=== PATIENT | female | born 1955 | race Caucasian/White ===

== ENCOUNTER 2021-03-16 11:47 | Emergency (ER) | payer OTHER, SELFPAY ==
[2021-03-16 11:56] VITALS: BP 121/65; PULSE 63; RESP 16; TEMP 36.9; O2SAT 97
--- NOTE | 2021-03-16 12:18 | ED.EAR ---
HPI - Ear Problem General Chief complaint: Ear Stated complaint: lt ear pain Time Seen by Provider: 03/16/21 12:20 Source: patient Mode of arrival: ambulatory Limitations: no limitations History of Present Illness HPI Narrative: Kari Whitlock is a 65 yo female with no PMH of left ear pain that has been going on for couple of weeks. States the increasing pain is bothering her and she is feels like her here hearing is muffled Related Data Home Medications Medication Instructions Recorded Confirmed cholecalciferol (vitamin D3) 50 mcg PO DAILY 03/16/21 03/16/21 [Vitamin D3] glucosamine sulfate [Glucosamine] 750 mg PO DAILY 03/16/21 03/16/21 Allergies Allergy/AdvReac Type Severity Reaction Status Date / Time diphenhydramine Allergy Hives Verified 03/16/21 11:53 [From Rosalina] Review of Systems Review of Systems: Narrative: CONSTITUTIONAL: Denies fever, chills, sweats. EYES: Denies visual changes, redness, discharge. ENT: Denies rhinorrhea, congestion, sore throat, left otalgia. CARDIOVASCULAR: Denies chest pain, palpitations, edema. RESPIRATORY: Denies dyspnea, wheezing, cough GASTROINTESTINAL: Denies abdominal pain, nausea, vomiting, diarrhea. GENITOURINARY: Denies dysuria, hematuria, abnormal discharge SKIN: Denies rash or itching. NEUROLOGIC: Denies numbness, or focal weakness. PSYCHIATRIC: Denies anxiety or depression. [facility] Past Medical History Medical History No acute medical problems Family History Family History Other Cancer Heart disease Social History Social History (Updated 03/16/21 @ 12:31 by Cristiana Crawford CNP) Smoking status: Never smoker Alcohol intake: current Comments At time of signature, I agree with nursing past medical, surgical, social and family history. There is no relevant family history pertinent to the presenting complaint. Exam Narrative: Exam Narrative: GENERAL: This is a well-nourished, well-developed patient, in mild distress. HEAD: normocephalic, atraumatic. EYES: . Sclera clear/white. Vision is grossly intact. EARS: External ears normal, auditory canals clear on R erythema and swell in L without drainage, no cerumen,TMs normal without perforation. Hearing grossly intact. NOSE: External nose normal without nasal discharge, nares without redness, no rhinorrhea. THROAT: Mucous membranes moist, NECK: Neck supple, CARDIOVASCULAR: Regular rate and rhythm without murmurs, gallops, or rubs. RESPIRATORY: Clear to auscultation. Breath sounds equal bilaterally. No wheezes, rales, or rhonchi. GASTROINTESTINAL: Abdomen soft, SKIN: warm, intact with no suspicious lesions or rash, good texture and turgor. NEURO: awake, alert, and oriented to person, place and time. There were no obvious focal neurologic abnormalities. Steady gait EXTREMITIES: Normal range of motion. BACK: Nontender without deformity Course Course Emergency Course: Patient comes here with left ear pain and feeling hearing is somewhat muffled Started on Ciprodex. Follow-up with [facility] after a week Vital Signs Vital signs: Vital Signs Temperature 98.4 F 03/16/21 11:56 Pulse Rate 63 03/16/21 11:56 Respiratory Rate 16 03/16/21 11:56 Blood Pressure 121/65 03/16/21 11:56 Pulse Oximetry 97 03/16/21 11:56 Temperature 98.4 F 03/16/21 11:56 Pulse Rate 63 03/16/21 11:56 Respiratory Rate 16 03/16/21 11:56 Blood Pressure 121/65 03/16/21 11:56 Pulse Oximetry 97 03/16/21 11:56 Medical Decision Making Differential Diagnosis Differential Diagnosis: Left ear infection versus otitis external versus pharyngitis Vital Signs Vital Signs: Vital Signs Temperature 98.4 F 03/16/21 11:56 Pulse Rate 63 03/16/21 11:56 Respiratory Rate 16 03/16/21 11:56 Blood Pressure 121/65 03/16/21 11:56 Pulse Oximetry 97 03/16/21 11:56 Temperature 98.4
--- NOTE | 2021-03-19 16:04 | ED.EAR ---
HPI - Ear Problem General Chief complaint: Ear Stated complaint: lt ear pain Time Seen by Provider: 03/16/21 12:20 Source: patient Mode of arrival: ambulatory Limitations: no limitations History of Present Illness MD Complaint: ear pain Related Data Home Medications Medication Instructions Recorded Confirmed cholecalciferol (vitamin D3) 50 mcg PO DAILY 03/16/21 03/16/21 [Vitamin D3] glucosamine sulfate [Glucosamine] 750 mg PO DAILY 03/16/21 03/16/21 estradiol 10 mcg VAGINAL DIRECTED 03/19/21 03/19/21 Allergies Allergy/AdvReac Type Severity Reaction Status Date / Time diphenhydramine Allergy Hives Verified 03/19/21 16:06 [From Benelsaryl] Review of Systems Review of Systems: Narrative: CONSTITUTIONAL: Denies malaise, chills, sweats, or fever. EYES: Denies visual changes, redness, or discharge. ENT: Reports rhinorrhea, congestion, sinus pain, otalgia and sore throat. CARDIOVASCULAR: Denies chest pain, palpitations, or edema. RESPIRATORY: Reports cough. Denies dyspnea. GASTROINTESTINAL: Denies abdominal pain, nausea, vomiting, diarrhea SKIN: Denies rash or itching. MUSCULOSKELETAL: Denies myalgia. NEUROLOGIC: Denies headache. All systems reviewed & are unremarkable except as noted in HPI and below PMFSH Past Medical History Medical History No acute medical problems Family History Family History Other Cancer Heart disease Social History Social History (Updated 03/16/21 @ 12:31 by Cristiana Crawford CNP) Smoking status: Never smoker Alcohol intake: current Comments At time of signature, agree with nursing past medical, surgical, social and family history. There is no relevant family history pertinent to the presenting complaint Exam Narrative: Exam Narrative: GENERAL: Well-appearing, well-nourished, and in no acute distress. HEAD: Normocephalic EYES: PERRLA, conjunctivae clear ENT: Nares clear, turbinates edematous and erythematous, clear discharge. Mucous membranes moist. TM pearly sam with dull light reflex bilaterally; no tragal tenderness. Oropharynx erythematous without lesions. Tonsils enlarged and without exudate, no drooling, no hoarseness, no trismus, uvula midline. NECK: Supple. No lymphadenopathy CHEST: Clear to auscultation, breath sounds equal. No wheezing, rhonchi, rales, or stridor. No respiratory distress, speaks in full sentences. HEART: Regular rate and rhythm. No murmur heard. SKIN: Warm, dry, no rash. NEURO: Alert and oriented x3. PSYCH: Normal mood and affect Course Course Emergency Course: Patient is aware of diagnosis, understands and agrees to treatment plan. Anticipatory guidance given. Patient agrees to follow-up as directed and is aware of reasons to seek care at the emergency department. Portions of this record may have been created with voice recognition software Vital Signs Vital signs: Vital Signs Temperature 98.4 F 03/16/21 11:56 Pulse Rate 63 03/16/21 11:56 Respiratory Rate 16 03/16/21 11:56 Blood Pressure 121/65 03/16/21 11:56 Pulse Oximetry 97 03/16/21 11:56 Temperature 98.4 F 03/16/21 11:56 Pulse Rate 63 03/16/21 11:56 Respiratory Rate 16 03/16/21 11:56 Blood Pressure 121/65 03/16/21 11:56 Pulse Oximetry 97 03/16/21 11:56 Reviewed. Medical Decision Making MDM Narrative Medical decision making narrative: Differential diagnosis considered: Max virus, strep pharyngitis, allergic rhinitis, upper respiratory tract infection, sinusitis, rhinosinusitis, nasopharyngitis. viral pharyngitis, otitis media, otitis externa, pneumonia, bronchitis, viral cough syndrome, viral syndrome, and influenza. Exam findings show no acute concerns or changes; patient is non-toxic appearing and is in no distress. Patient is appropriate for outpatient treatment and follow-up. Vital Signs Vital Signs: Vital Signs Temperat
== END 2021-03-16 12:42 | disposition home or self-care (01) ==
PROVIDERS: Emergency Provider Nurse Practitioner
DX: H66.002 Acute suppurative otitis media without spontaneous rupture of ear drum, left ear (principal)
CPT/HCPCS: 99203; G0463

== ENCOUNTER 2021-03-19 16:02 | Emergency (ER) | payer OTHER, SELFPAY ==
[2021-03-19 16:08] VITALS: BP 137/77; PULSE 74; RESP 18; TEMP 36.9; O2SAT 98
--- NOTE | 2021-03-19 16:20 | ED.EAR ---
HPI - Ear Problem General Chief complaint: Ear Stated complaint: ear pain Time Seen by Provider: 03/19/21 16:13 Source: patient and RN notes reviewed Mode of arrival: ambulatory Limitations: no limitations History of Present Illness HPI Narrative: 65-year-old female presents with concern for continued left ear pain. Reports she was seen 3 days ago for the same symptoms and was given antibiotic eardrops. Reports symptoms have worsened since that time. She denies drainage from the ear. She denies rhinorrhea, nasal congestion, fever, sore throat, cough. Reports muffled hearing MD Complaint: ear pain Related Data Home Medications Medication Instructions Recorded Confirmed cholecalciferol (vitamin D3) 50 mcg PO DAILY 03/16/21 03/16/21 [Vitamin D3] glucosamine sulfate [Glucosamine] 750 mg PO DAILY 03/16/21 03/16/21 estradiol 10 mcg VAGINAL DIRECTED 03/19/21 03/19/21 Allergies Allergy/AdvReac Type Severity Reaction Status Date / Time diphenhydramine Allergy Hives Verified 03/19/21 16:06 [From Rosalina] Review of Systems Review of Systems: Narrative: CONSTITUTIONAL: Denies malaise, chills, sweats, or fever. EYES: Denies visual changes, redness, or discharge. ENT: Denies rhinorrhea, congestion, sinus pain or sore throat. Reports left ear pain RESPIRATORY: Denies cough or dyspnea. SKIN: Denies rash or itching. MUSCULOSKELETAL: Denies myalgia. NEUROLOGIC: Denies headache. All systems reviewed & are unremarkable except as noted in HPI and below PMFSH Past Medical History Medical History No acute medical problems Family History Family History Other Cancer Heart disease Social History Social History (Updated 03/16/21 @ 12:31 by Cristiana Crawford CNP) Smoking status: Never smoker Alcohol intake: current Gender identity (if verbalized by the patient): Female Comments At time of signature, agree with nursing past medical, surgical, social and family history. There is no relevant family history pertinent to the presenting complaint Exam Narrative: Exam Narrative: GENERAL: Well-appearing, well-nourished, and in no acute distress. HEAD: Normocephalic, atraumatic. EYES: PERRLA, conjunctivae clear ENT: Nares clear. Mucous membranes moist. Right TM pearly sam with sharp light reflex, left TM not visible; left auditory canal erythematous, edematous with purulent drainage, not able to visual TM, left tragal tenderness. Oropharynx without erythema or lesions. Tonsils not enlarged and without exudate. NECK: Supple. CHEST: No respiratory distress. Speaks in full sentences. HEART: Regular rate and rhythm. SKIN: Warm, dry, no rash. NEURO: Alert and oriented x3. PSYCH: Normal mood and affect Course Course Emergency Course: Patient is aware of diagnosis, understands and agrees to treatment plan. Anticipatory guidance given. Patient agrees to follow-up as directed and is aware of reasons to seek care at the emergency department. Portions of this record may have been created with voice recognition software Vital Signs Vital signs: Vital Signs Temperature 98.4 F 03/19/21 16:08 Pulse Rate 74 03/19/21 16:08 Respiratory Rate 18 03/19/21 16:08 Blood Pressure 137/77 03/19/21 16:08 Pulse Oximetry 98 03/19/21 16:08 Temperature 98.4 F 03/19/21 16:08 Pulse Rate 74 03/19/21 16:08 Respiratory Rate 18 03/19/21 16:08 Blood Pressure 137/77 03/19/21 16:08 Pulse Oximetry 98 03/19/21 16:08 Reviewed. Medical Decision Making MDM Narrative Medical decision making narrative: Differential diagnosis considered: Max virus, strep pharyngitis, allergic rhinitis, upper respiratory tract infection, sinusitis, rhinosinusitis, nasopharyngitis. viral pharyngitis, otitis media, otitis externa, foreign body, eustachian tube dysfunction. Exam findings show no acute concerns or changes;
== END 2021-03-19 16:26 | disposition home or self-care (01) ==
PROVIDERS: Emergency Provider Nurse Practitioner
DX: H60.502 Unspecified acute noninfective otitis externa, left ear (principal)
CPT/HCPCS: 99213; G0463

== ENCOUNTER 2022-02-05 00:12 | Day surgery (SDC) | payer OTHER, SELFPAY ==
[2022-01-23 11:44] VITALS: BMI 31.8
--- NOTE | 2022-02-02 16:34 | PM.HPGS ---
History of Present Illness History of Present Illness Consent: Risks, benefits, and alternatives have been discussed and questions answered. Patient agrees to proceed with procedure. Chief complaint: hx of colon polyps Narrative: Kari Whitlock is a 66 year old female who was referred for colon cancer screening. she has a family history of colon cancer. Her father had colon cancer. She also has had polyps removed in the past Review of Systems Review of Systems: All systems reviewed & are unremarkable except as noted in HPI and below PMFSH Past Medical History Medical History Arthritis BMI 32.0-32.9,adult COVID-19 Encounter for screening colonoscopy Hyperlipidemia No acute medical problems Surgical History Surgical History History of appendectomy Hx of breast reduction, elective Family History Family History Father Carcinoma of colon Bladder cancer Mother No problems noted. 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 Gender identity (if verbalized by the patient): Female Spiritual care concerns: No Meds Home Medications and Allergies Home Medications Medication Instructions Recorded Confirmed Type cholecalciferol (vitamin D3) 50 mcg PO DAILY 03/16/21 01/23/22 History [Vitamin D3] glucosamine sulfate [Glucosamine] 750 mg PO DAILY 03/16/21 01/23/22 History estradiol 1 g VAGINAL 2XW 07/12/21 01/23/22 History rosuvastatin 20 mg tablet 20 mg PO DAILY #30 tablet 01/30/22 Rx Allergies Allergy/AdvReac Type Severity Reaction Status Date / Time diphenhydramine Allergy Hives Verified 02/05/22 06:23 [From Benadryl] Exam Const: General: alert Orientation/consciousness: patient oriented x3 Resp: Auscultation: clear to auscultation bilaterally Cardio: Rhythm: regular rhythm GI: GI Palp: Yes Soft to palpation and No Tenderness to palpation present (GI) Neuro: General: patient oriented x3 Assessment and Plan Assessment and plan (1) Colon cancer screening: Code(s): Z12.11 - Encounter for screening for malignant neoplasm of colon Status: Acute Assessment and Plan: Colonoscopy with possible biopsy or polypectomy or cautery or injection of substances.
[2022-02-05 06:25] VITALS: BP 117/72; PULSE 79; RESP 20; TEMP 36.8; O2SAT 98
[2022-02-05] MEDS: LACTATED RINGERS 1,000 ML 150 ML IV CONT (06:35)
--- NOTE | 2022-02-05 06:36 | P.PNAN_ITS ---
Anes - Initial Pre Proc Eval Procedure: Operation Date: 02/05/22 07:30 Proposed Procedures p Screening Colonoscopy - Ruperto Albarado MD Date/Time: 02/05/22 06:36 Surgeon: Ruperto Albarado MD Pre Op Diagnosis: hx of colon polyps Patient Data Age: 66 Gender: F Height: 1.73 m Weight: 93.9 kg Last Vital Signs Temp 36.8 C 02/05/22 06:25 Pulse 79 02/05/22 06:25 Resp 20 02/05/22 06:25 BP 117/72 02/05/22 06:25 Pulse Ox 98 02/05/22 06:25 Allergies Allergy/AdvReac Type Severity Reaction Status Date / Time diphenhydramine Allergy Hives Verified 02/05/22 06:23 [From Benadryl] Home Medications Medication Instructions Recorded Confirmed Type cholecalciferol (vitamin D3) 50 mcg PO DAILY 03/16/21 01/23/22 History [Vitamin D3] glucosamine sulfate [Glucosamine] 750 mg PO DAILY 03/16/21 01/23/22 History estradiol 1 g VAGINAL 2XW 07/12/21 01/23/22 History rosuvastatin 20 mg tablet 20 mg PO DAILY #30 tablet 01/30/22 Rx Patient hx anesthesia problems: none Family hx anesthesia problems: none Results Review: All pre-operative results and documents have been reviewed as part of the pre-operative evaluation. [facility] Past Medical History Medical History (Updated 02/05/22 @ 06:37 by Gian Holliday DO) Arthritis BMI 32.0-32.9,adult COVID-19 Encounter for screening colonoscopy Hyperlipidemia No acute medical problems Surgical History Surgical History History of appendectomy Hx of breast reduction, elective Family History Family History Father Carcinoma of colon Bladder cancer Mother No problems noted. 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 Gender identity (if verbalized by the patient): Female Spiritual care concerns: No Anes - Eval Final PreProcedure Day of Procedure 02/05/22 06:36 Patient weight: obese Heart: regular rate and rhythm Lungs: clear to auscultation and normal air movement Airway: Mallampati scale class II Neurological: alert and oriented Last oral intake: >/= 8 hours ASA classification: II Emergent: no Anesthetic plan: proceed Anesthesia type and monitoring: general GIVS and standard monitoring Results Review: All pre-operative results and documents have been reviewed as part of the pre-operative evaluation. Informed Consent: The patient's anesthetic plan and its attendant risks and benefits were discussed with the patient/family/POA. Questions were solicited and answers provided to the satisfaction of the patient/family/POA.
[2022-02-05 07:54] VITALS: BP 100/63; PULSE 71; RESP 20; O2SAT 93
[2022-02-05 08:04] VITALS: BP 93/53; PULSE 65; RESP 20; O2SAT 95
[2022-02-05 08:13] VITALS: BP 103/63; PULSE 60; RESP 20; O2SAT 92
== END 2022-02-05 08:24 | disposition home or self-care (01) ==
PROVIDERS: PCP Family Medicine; Visit Provider Internal Medicine Gastroenterology
PROC: 0DJD8ZZ Inspection of Lower Intestinal Tract, Via Natural or Artificial Opening Endoscopic (ICD-10-PCS; CPT 45378; principal; 2022-02-05 07:30)
DX: Z12.11 Encounter for screening for malignant neoplasm of colon (principal); K63.5 Polyp of colon; K57.30 Diverticulosis of large intestine without perforation or abscess without bleeding; Z80.0 Family history of malignant neoplasm of digestive organs; E78.5 Hyperlipidemia, unspecified; Z87.891 Personal history of nicotine dependence; E66.9 Obesity, unspecified; Z68.31 Body mass index [BMI] 31.0-31.9, adult
CPT/HCPCS: 45385; 88305; J2704; J7120

== ENCOUNTER → 2022-05-01 11:22 | Outpatient (CLI) | payer MEDICARE, OTHER, SELFPAY ==
--- NOTE | ~2022-05-01 | XR_ITS ---
EXAMINATION: XR abdomen/kub 1V INDICATION: Left lower quadrant pain TECHNIQUE: Supine views of the abdomen were obtained on 2 radiographs. COMPARISON: None FINDINGS: A calcification projects in the expected location of the left renal pelvis. The bowel gas p attern is normal. A lucent centered calcification of the right upper quadrant likely reflects choleli thiasis. There is moderate to severe lumbar spondylosis. IMPRESSION: 1. Left abdominal calcification the expected location of the left renal pelvis. Recommend correlation for left flank pain. Reviewed, dictated and finalized at location A.
== END ==
PROVIDERS: PCP Family Medicine; Visit Provider Nurse Practitioner Family
DX: R31.9 Hematuria, unspecified (principal); R10.32 Left lower quadrant pain; R93.41 Abnormal radiologic findings on diagnostic imaging of renal pelvis, ureter, or bladder
CPT/HCPCS: 74018

== ENCOUNTER 2022-05-01 12:50 | Outpatient (CLI) | payer MEDICARE, OTHER, SELFPAY ==
--- NOTE | ~2022-05-01 | CT_ITS ---
EXAMINATION: CT abdomen pelvis wo con DATE: 05/01/2022 13:24 INDICATION: Left flank pain TECHNIQUE: Computed tomography (CT) of the abdomen and pelvis was performed without intravenous contr ast. The dose-length product (DLP) was 887.63 mGy-cm. Automated exposure control and iterative recons truction technique were employed. COMPARISON: None FINDINGS: Minimal dependent atelectasis is present in the lung bases. The heart size is normal. A sto ne is present in the nondistended gallbladder. The liver, spleen, pancreas, and adrenal glands are no rmal. There is a 9 mm stone in the left renal pelvis with mild inflammatory change of the left renal pelvis. Nonobstructing stones of the left kidney measure up to 3 mm. The right kidney is unremarkable . No pathologically enlarged abdominal or pelvic lymph nodes are identified. There is no free intrape ritoneal gas or evidence of bowel obstruction. There is severe lumbar spondylosis. IMPRESSION: 1. 9 mm stone in the left renal pelvis with surrounding inflammatory change. 2. Nonobstructing left nephrolithiasis. Reviewed, dictated and finalized at location A.
== END 2022-05-01 12:51 | disposition home or self-care (01) ==
LOC: ANHIMG 12:54
PROVIDERS: PCP Family Medicine; Visit Provider Nurse Practitioner Family
DX: R31.9 Hematuria, unspecified (principal); R10.32 Left lower quadrant pain; N20.0 Calculus of kidney
CPT/HCPCS: 74176

== ENCOUNTER 2022-05-03 14:17 | Outpatient (CLI) | payer MEDICARE, OTHER, SELFPAY ==
--- NOTE | 2022-05-03 14:42 | ECG_ITS ---
Measurements Intervals [place] Rate: 64 P: 30 [place]: 165 QRS: -6 QRSD: 91 T: -6 QT: 407 QTc: 420 Interpretive Statements SINUS RHYTHM POOR R-WAVE PROGRESSION INFERIOR MYOCARDIAL INFARCTION [40+ ms Q WAVE AND/OR ST/T ABNORMALITY IN II/aVF], PROBABLY OLD NO PREVIOUS ECG AVAILABLE FOR COMPARISON Electronically Signed On 05-04-2022 11:55:42 CDT by Akbar Blackmon M.D.
[2022-05-03 15:42] LABS: Prothrombin Time 13.2 Seconds (11.1-14.7)
[2022-05-03 15:43] LABS: Partial Thromboplastin Time 29.2 SECONDS (22.3-36.8)
== END 2022-05-03 14:18 | disposition home or self-care (01) ==
PROVIDERS: PCP Family Medicine; Visit Provider Urology
DX: N20.0 Calculus of kidney (principal); E78.5 Hyperlipidemia, unspecified; I25.2 Old myocardial infarction; Z51.81 Encounter for therapeutic drug level monitoring; Z79.899 Other long term (current) drug therapy
CPT/HCPCS: 36415; 85610; 85730; 93005

== ENCOUNTER 2022-05-04 00:43 | Day surgery (SDC) | payer MEDICARE, OTHER, SELFPAY ==
--- NOTE | 2022-05-03 14:08 | WPDANESEPPF ---
Anes - Initial Pre Proc Eval Procedure: Operation Date: 05/04/22 11:30 Proposed Procedures p Left Renal Extracorporeal Shock Wave Lithotripsy, - Altaf Steiner MD s Cystoscopy, Left Retrograde Pyelogram, Left Stent Placement - Altaf Steiner MD Date/Time: 05/03/22 14:08 Surgeon: Altaf Steiner MD Pre Op Diagnosis: kidney stone Patient Data Age: 66 Gender: F Height: Weight: Allergies Allergy/AdvReac Type Severity Reaction Status Date / Time diphenhydramine Allergy Intermediate Hives Verified 05/04/22 09:28 [From Benadryl] Home Medications Medication Instructions Recorded Confirmed Type cholecalciferol (vitamin D3) 50 50 mcg PO DAILY 03/16/21 05/04/22 History mcg (2,000 unit) capsule (Vitamin D3) glucosamine sulfate 750 mg tablet 750 mg PO DAILY 03/16/21 05/04/22 History estradiol 0.01% (0.1 mg/gram) 1 g vaginal 2XW 07/12/21 05/04/22 History vaginal cream (Estrace) rosuvastatin 20 mg tablet (Crestor) 20 mg PO DAILY #30 tabs 01/30/22 05/04/22 Rx Patient hx anesthesia problems: none Family hx anesthesia problems: none Results Review: All pre-operative results and documents have been reviewed as part of the pre-operative evaluation. [facility] Past Medical History Medical History Adult BMI 31.0-31.9 kg/sq m Arthritis BMI 32.0-32.9,adult COVID-19 Encounter for screening colonoscopy Hyperlipidemia No acute medical problems Surgical History Surgical History History of appendectomy Hx of breast reduction, elective Family History Family History Father Carcinoma of colon Bladder cancer Mother No problems noted. 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 Gender identity (if verbalized by the patient): Female Spiritual care concerns: No Anes - Eval Final PreProcedure Day of Procedure 05/03/22 14:08 Patient weight: overweight Heart: regular rate and rhythm Lungs: clear to auscultation Airway: Mallampati scale class II Neurological: alert and oriented Last oral intake: >/= 8 hours ASA classification: II Emergent: no Anesthetic plan: proceed Anesthesia type and monitoring: general LMA and standard monitoring Results Review: All pre-operative results and documents have been reviewed as part of the pre-operative evaluation. Informed Consent: The patient's anesthetic plan and its attendant risks and benefits were discussed with the patient/family/POA. Questions were solicited and answers provided to the satisfaction of the patient/family/POA.
--- NOTE | 2022-05-03 14:20 | PC.NURSE ---
Report to the Outpatient Waiting Room, entrance under the green pavilion located off [facility], at time _0930_ on date _[id number]_. OR Time: _1130_. - You and your visitor will be asked to self-screen and do not enter if you have any COVID symptoms. - Only one visitor and NO children visitors are allowed at this time. - The patient visitor is requested to leave or wait in car when not with patient due to restrictions. - A mask is required within the hospital. Patients may have clear liquids (water, carbonated beverages, clear teas, apple juice) until 3 hours prior to surgery with a maximum of 20 ounces. - No food from midnight until time of surgery Take the following medications with a SIP of water the morning of surgery: ____None Medications to discontinue per physician ___None Date to take last dose Please no make-up, nail portuguese, hairspray, perfume, deodorant, or body powder the day of surgery. No jewelry (including any body piercings) or valuables the day of surgery, leave them at home. Please take a shower or bath the night before, or the morning of, surgery with an antibacterial soap. Wear comfortable, loose fitting clothing. - Jewelry must be removed prior to entering the operating room. Rings and piercings that are not removed may be cut off. - The hospital will not accept responsibility for valuables. - Please leave all valuables, including medications, at home the day of surgery. If you are going home after surgery, a licensed fork truck driver must drive you home. - NO public transportation without another adult. - We recommend that an adult stay with you for 24 hours following discharge. - We also recommend that you do not drive, make important decision, drink alcoholic beverages, or take any drugs that were not prescribed by your health care provider for at least 24 hours after your discharge time. Follow any additional instructions given to you from your surgeon. If you or anyone in your household have experienced Covid symptoms in the past week, please notify your surgeon or the nurse liaison at the phone number below for possible testing. Telephone instructions given to _Patient__and asked if any additional questions and then verbalized understanding. Patient advised to call surgeon office or pre surgery nurse liaison [phone] if any additional questions.
[2022-05-03 14:27] VITALS: BP 126/71; PULSE 61; RESP 16; TEMP 36.4; O2SAT 96; BMI 33.1
[2022-05-04] VITALS (10 sets, daily range): BP systolic 115–178; BP diastolic 71–91; PULSE 57–80; RESP 13–22; TEMP 36.3–36.9; O2SAT 95–100
--- NOTE | ~2022-05-04 | XR_ITS ---
EXAMINATION: XR abdomen/kub 1V INDICATION: Urolithiasis TECHNIQUE: Supine views of the abdomen were obtained on 2 radiographs. COMPARISON: 05/01/2022 FINDINGS: There is a 10 mm stone in the left renal pelvis. No additional urolithiasis is identified. The bowel gas pattern is normal. Cholelithiasis is noted. There is severe lumbar spondylosis. IMPRESSION: 1. 10 mm stone in the left renal pelvis. Reviewed, dictated and finalized at location A.
[2022-05-04] MEDS: LACTATED RINGERS 1,000 ML 30 ML IV CONT ×2 (09:37→13:01)
--- NOTE | 2022-05-04 10:02 | WPDHPUPDATE1 ---
History and Physical Update Update Date/Time: 05/04/22 10:02 History and Physical has been reviewed, including an updated exam of the patient. There are NO changes in the patient's condition. Risks, benefits, and alternatives have been discussed and questions answered. Patient agrees to proceed with procedure. Proceed with cysto, left retrograde, left stent , left renal eswl
[2022-05-04] MEDS: ceFAZolin 2 GM/D5W 50 ML 2 GM/50 ML BAG IVPB (10:15)
--- NOTE | 2022-05-04 10:54 | W.PM.PROC2 ---
Procedure Note - Detailed Date of Procedure 05/04/22 Pre-op Diagnosis kidney stone Post-op Diagnosis Same Procedure Performed Cystoscopy, left retrograde pyelogram, left stent placement 4.8 Nicaraguan contour, ESWL left renal calculus 1 cm Surgeon Altaf Steiner MD Anesthesia General Description of Procedure Patient was taken to the operative suite correctly identified. Once anesthesia was obtained she was frog-legged and prepped and draped usual sterile fashion. Sixteen Nicaraguan scope was inserted into the bladder. There are no tumors noted. The left ureteral orifice was cannulated with a [place] and a pyelogram was performed. A guidewire was then passed up into the renal pelvis. A 4.8 Nicaraguan contour stent was then placed with the proximal end coiled around the stone in the distal in the bladder. 2% viscous lidocaine was inserted into the urethra. Patient was then repositioned. Two thousand five hundred shocks were given to the stone. Patient tolerated procedure well without any complications was taken recovery stable condition. She will follow-up in 7-10 days with KUB. Drains Yes (4.8 Nicaraguan contour stent) Packing No Pathology None sent Complications No immediate complications Condition Stable Disposition PACU
[2022-05-04] MEDS: oxyCODONE HCL (*CRX) 5 MG TAB IR PO (12:01)
[2022-05-04] MEDS: ONDANSETRON INJ 4 MG/2 ML VIAL IV PUSH (12:24)
[2022-05-04] MEDS: fentaNYL CITRATE INJ (*CRX) 100 MCG/2 ML VIAL 25 MCG IV PUSH ×2 (12:29→12:32)
[2022-05-04] MEDS: OXYBUTYNIN CHLORIDE 5 MG TABLET PO (12:59)
== END 2022-05-04 14:01 | disposition home or self-care (01) ==
PROVIDERS: PCP Family Medicine; Visit Provider Urology
PROC: (CPT 50590; principal; 2022-05-04 11:30)
PROC: (CPT 52352; 2022-05-04 11:30)
DX: N20.0 Calculus of kidney (principal); M47.816 Spondylosis without myelopathy or radiculopathy, lumbar region; M19.90 Unspecified osteoarthritis, unspecified site; Z86.16 Personal history of COVID-19; E78.5 Hyperlipidemia, unspecified
CPT/HCPCS: 50590; 52332; 74018; A9270; C1758; C1769; C2617; J0690; J1100; J2405; J2704; J3010; J7120; Q9966

== ENCOUNTER 2022-05-11 09:43 | Outpatient (CLI) | payer MEDICARE, OTHER, SELFPAY ==
--- NOTE | ~2022-05-11 | XR_ITS ---
EXAMINATION: XR abdomen/kub 1V INDICATION: Calcium kidney stone, left stent insertion TECHNIQUE: Supine views of the abdomen were obtained on 2 radiographs. COMPARISON: 05/04/2022 FINDINGS: A left internal ureteral stent has been placed in expected position. There is a 7 mm stone projecting at the coiled portion of the stent in the left renal pelvis. There appears to be a [address] one adjacent to the proximal aspect of the stent. There are questionable stone fragments in the lower pole of the left kidney. Cholelithiasis is noted. There is severe lumbar spondylosis. IMPRESSION: 1. Interval treatment of the previously described stone in the left renal pelvis and placement of a l eft internal ureteral stent with stone fragments seen in the left renal pelvis, left kidney lower carlos e, and adjacent to the internal ureteral stent. Reviewed, dictated and finalized at location B. IMPRESSION: 1. Interval treatment of the previously described stone in the left renal pelvi s and placement of a left internal ureteral stent with stone fragments seen in the left renal pelvis, left kidney lower pole, and adjacent to the internal ure teral stent.
== END 2022-05-11 09:44 | disposition home or self-care (01) ==
PROVIDERS: PCP Family Medicine; Visit Provider Urology
DX: N20.0 Calculus of kidney (principal); Z96.0 Presence of urogenital implants
CPT/HCPCS: 74018

== ENCOUNTER 2022-05-22 13:40 | Outpatient (CLI) | payer MEDICARE, OTHER, SELFPAY ==
--- NOTE | ~2022-05-22 | XR_ITS ---
EXAM: XR abdomen/kub 1V DATE: 05/22/2022 14:03 HISTORY: CALCIUM KIDNEY STONE . COMPARISON: 05/11/2022. FINDINGS: Left ureteral stent, in good position. Normal bowel gas pattern. No organomegaly. Cholelit hiasis. Surgical clips in the right lower quadrant. Calcifications in the left inferior pole, left re nal pelvis, and proximal left ureter, largely unchanged. Degenerative changes in the lumbar spine. IMPRESSION: Nephrolithiasis. Proximal left ureteral stones. Reviewed, dictated and finalized at location K.
== END 2022-05-22 13:41 | disposition home or self-care (01) ==
PROVIDERS: PCP Family Medicine; Visit Provider Urology
DX: N20.0 Calculus of kidney (principal); N20.1 Calculus of ureter
CPT/HCPCS: 74018

== ENCOUNTER 2022-06-07 12:48 | Outpatient (CLI) | payer MEDICARE, OTHER, SELFPAY ==
[2022-06-07 13:44] LABS: INR 1.1; Prothrombin Time 13.3 Seconds (11.1-14.7)
== END 2022-06-07 12:49 | disposition home or self-care (01) ==
PROVIDERS: PCP Family Medicine; Visit Provider Urology
DX: N20.0 Calculus of kidney (principal); Z01.818 Encounter for other preprocedural examination
CPT/HCPCS: 36415; 85610; 85730; 87086

== ENCOUNTER 2022-06-15 00:26 | Day surgery (SDC) | payer MEDICARE, OTHER, SELFPAY ==
[2022-06-04 14:06] VITALS: BMI 32.1
--- NOTE | 2022-06-04 14:11 | PC.NURSE ---
Report to the Outpatient Waiting Room, entrance under the green pavilion located off [facility], at time _0600_ on date _[id number]_. OR Time: _0730_. Time changes happen often and if your time is changed the preop area will call you the afternoon before. - You and your visitor will be asked to self-screen and do not enter if you have any COVID symptoms. - Only one visitor and NO children visitors are allowed at this time. - The patient visitor is requested to leave or wait in car when not with patient due to restrictions. - A mask is required within the hospital. Patients may have clear liquids (water, carbonated beverages, clear teas, apple juice) until 3 hours prior to surgery with a maximum of 20 ounces. - No food from midnight until time of surgery Take the following medications with a SIP of water the morning of surgery: _None Medications to discontinue per physician _Vitamin D3 and Glucosamine Date to take last vfrv__[id number] Please no make-up, nail singaporean, hairspray, perfume, deodorant, or body powder the day of surgery. No jewelry (including any body piercings) or valuables the day of surgery, leave them at home. Please take a shower or bath the night before, or the morning of, surgery with an antibacterial soap. Wear comfortable, loose fitting clothing. - Jewelry must be removed prior to entering the operating room. Rings and piercings that are not removed may be cut off. - The hospital will not accept responsibility for valuables. - Please leave all valuables, including medications, at home the day of surgery. If you are going home after surgery, a licensed horse and wagon driver must drive you home. - NO public transportation without another adult. - We recommend that an adult stay with you for 24 hours following discharge. - We also recommend that you do not drive, make important decision, drink alcoholic beverages, or take any drugs that were not prescribed by your health care provider for at least 24 hours after your discharge time. Follow any additional instructions given to you from your surgeon. If you or anyone in your household have experienced Covid symptoms in the past week, please notify your surgeon or the nurse liaison at the phone number below for possible testing. Telephone instructions given to __Patient___and asked if any additional questions and then verbalized understanding. Patient advised to call surgeon office or pre surgery nurse liaison [phone] if any additional questions.
--- NOTE | 2022-06-14 15:27 | P.PNAN_ITS ---
Anes - Initial Pre Proc Eval Procedure: Operation Date: 06/15/22 07:30 Proposed Procedures p Left Renal Extracorporeal Shock Wave Lithotripsy - Altaf Steiner MD Date/Time: 06/14/22 15:27 Surgeon: Altaf Steiner MD Pre Op Diagnosis: left renal kidney stone Patient Data Age: 67 Gender: F Height: 1.7 m Weight: 93.2 kg Allergies Allergy/AdvReac Type Severity Reaction Status Date / Time diphenhydramine Allergy Intermediate Hives Verified 05/04/22 09:28 [From Benadryl] Home Medications Medication Instructions Recorded Confirmed Type cholecalciferol (vitamin D3) 50 50 mcg PO DAILY 03/16/21 06/04/22 History mcg (2,000 unit) capsule (Vitamin D3) glucosamine sulfate 750 mg tablet 750 mg PO DAILY 03/16/21 06/04/22 History estradiol 0.01% (0.1 mg/gram) 1 g vaginal 2XW 07/12/21 06/04/22 History vaginal cream (Estrace) rosuvastatin 20 mg tablet (Crestor) 20 mg PO DAILY #30 tabs 05/06/22 06/04/22 Rx tamsulosin 0.4 mg capsule 0.4 mg PO HS 06/04/22 06/04/22 History Patient hx anesthesia problems: none Family hx anesthesia problems: none Results Review: All pre-operative results and documents have been reviewed as part of the pre-o perative evaluation. [facility] Past Medical History Medical History Adult BMI 31.0-31.9 kg/sq m Arthritis BMI 32.0-32.9,adult COVID-19 Encounter for screening colonoscopy Hyperlipidemia No acute medical problems Surgical History Surgical History History of appendectomy Hx of breast reduction, elective Family History Family History Father Carcinoma of colon Bladder cancer Mother No problems noted. 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 Gender identity (if verbalized by the patient): Female Spiritual care concerns: No Anes - Eval Final PreProcedure Day of Procedure 06/14/22 15:27 Patient weight: overweight Heart: regular rate and rhythm Lungs: clear to auscultation Airway: Mallampati scale class II Neurological: alert and oriented Last oral intake: >/= 8 hours ASA classification: II Emergent: no Anesthetic plan: proceed Anesthesia type and monitoring: general LMA and standard monitoring Results Review: All pre-operative results and documents have been reviewed as part of the pre- operative evaluation. Informed Consent: The patient's anesthetic plan and its attendant risks and benefits were discussed with the patient/family/POA. Questions were solicited and answers provided to the satisfaction of the patient/fami
--- NOTE | ~2022-06-15 | XR_ITS ---
EXAMINATION: XR abdomen/kub 1V DATE: 06/15/2022 06:46 INDICATION: Nephrolithiasis for planned lithotripsy TECHNIQUE: A supine view of the abdomen on 2 radiographs was obtained. COMPARISON: KUB dated 05/22/[address] dated 05/01/2022 FINDINGS: Unchanged left internal ureteral stent with loops formed at the left renal pelvis and in the bladder. Possible small stone fragment superimposed over the proximal loop of the stent at the renal pelvis v ersus artifact from superimposed bowel. No stone fragments seen along the course of the left ureter. No right-sided urolithiasis. Rim calcified gallstone in the right upper quadrant. Couple surgical cli ps in the right lower quadrant consistent with prior appendectomy. Lung bases are clear. Heart size i s normal. Severe lumbar spondylosis. IMPRESSION: 1. Left internal ureteral stent remains in expected position with suggestion of residual small stone fragment superimposed over the proximal loop in the left renal pelvis. 2. Cholelithiasis. Reviewed, dictated and finalized at location A.
[2022-06-15 06:56] VITALS: BP 120/72; PULSE 70; RESP 18; TEMP 36.1; O2SAT 100
[2022-06-15] MEDS: LACTATED RINGERS 1,000 ML 30 ML IV CONT ×2 (07:04→08:42)
--- NOTE | 2022-06-15 07:20 | WPDHPUPDATE1 ---
History and Physical Update Update Date/Time: 06/15/22 07:20 History and Physical has been reviewed, including an updated exam of the patient. There are NO changes in the patient's condition. Risks, benefits, and alternatives have been discussed and questions answered. Patient agrees to proceed with procedure. Proceed iwth left renal eswl.
[2022-06-15] MEDS: ceFAZolin 2 GM/D5W 50 ML 2 GM/50 ML BAG IVPB (07:27)
--- NOTE | 2022-06-15 08:02 | W.PM.PROC2 ---
Procedure Note - Detailed Date of Procedure 06/15/22 Pre-op Diagnosis left renal kidney stone Post-op Diagnosis Same Procedure Performed Lithotripsy of left renal calculus Surgeon Altaf Steiner MD Anesthesia General Description of Procedure Patient is taken to the operative suite correctly identified. Once anesthesia was obtained the stones which were around the coil of the stent were localized in both planes. Two thousand five hundred shocks were given the stones. There appeared to be good fragmentation. Patient is taken recovery stable condition. She will follow-up in 7-10 days with a KUB most likely have her stent removed at that time. Estimated Blood Loss 0 Drains Yes Packing No Pathology None sent Complications No immediate complications Condition Stable Disposition PACU
[2022-06-15 08:10] VITALS: BP 101/89; PULSE 73; RESP 16; TEMP 36.2; O2SAT 97
[2022-06-15 08:25] VITALS: BP 108/65; PULSE 72; RESP 16; O2SAT 98
[2022-06-15 08:41] VITALS: BP 104/73; PULSE 64; RESP 16; O2SAT 98
[2022-06-15 09:00] VITALS: BP 112/46; PULSE 67; RESP 16
[2022-06-15 09:27] VITALS: BP 107/66; PULSE 58; RESP 16
== END 2022-06-15 09:31 | disposition home or self-care (01) ==
PROVIDERS: PCP Family Medicine; Visit Provider Urology
PROC: (CPT 50590; principal; 2022-06-15 07:30)
DX: N20.0 Calculus of kidney (principal); Z87.891 Personal history of nicotine dependence
CPT/HCPCS: 50590; 74018; J0690; J1100; J2250; J2405; J2704; J3010; J7120

== ENCOUNTER 2022-06-25 09:48 | Outpatient (CLI) | payer MEDICARE, OTHER, SELFPAY ==
--- NOTE | ~2022-06-25 | XR_ITS ---
EXAMINATION: XR abdomen/kub 1V INDICATION: Left-sided abdominal pain TECHNIQUE: Supine views of the abdomen were obtained on 2 radiographs. COMPARISON: 06/15/2022 FINDINGS: A left internal ureteral stent is in expected position. There are at least four stones roberto g the proximal aspect of the stent which measure up to 3 mm. There is a questionable stone adjacent t o the distal aspect of the stent. No additional urolithiasis is identified. There is severe lumbar sp ondylosis. IMPRESSION: 1. Left internal ureteral stent in expected position with multiple stones adjacent to the proximal st ent and possible stone adjacent to the distal stent. Reviewed, dictated and finalized at location A. IMPRESSION: 1. Left internal ureteral stent in expected position with multiple stones adjac ent to the proximal stent and possible stone adjacent to the distal stent.
== END 2022-06-25 09:49 | disposition home or self-care (01) ==
PROVIDERS: PCP Family Medicine; Visit Provider Urology
DX: N20.0 Calculus of kidney (principal); Z96.0 Presence of urogenital implants
CPT/HCPCS: 74018

== ENCOUNTER 2022-06-25 10:09 | Emergency (ER) | payer MEDICARE, OTHER, SELFPAY ==
[2022-06-25 10:13] VITALS: BP 146/75; PULSE 87; RESP 18; TEMP 36.6; O2SAT 98
--- NOTE | 2022-06-25 10:46 | ED.FEMALEGU ---
HPI - Female Genitourinary General Chief complaint: Urogenital-Female Stated complaint: L KIDNEY STONES Time Seen by Provider: 06/25/22 10:45 Source: patient Mode of arrival: ambulatory Limitations: no limitations History of Present Illness HPI Narrative: Patient is a 67-year-old female who presents the ED with report of left flank/left-sided abdominal pain. Patient reports she has been dealing with left-sided kidney stones for the past 2 months. She had a ureteral stent placed 2 months ago and has since had 2 lithotripsies (the second one last week). She had an outpatient KUB x-ray performed this morning and was supposed to follow-up with Dr. Steiner at [facility] today, however she developed worsening pain in her left side this morning, prompting her presentation. She has not taken anything for pain today. She is taking Flomax. Reports some nausea, but denies vomiting. Does report dysuria and occasional hematuria, which has been intermittent over the last 2 months. Denies any fevers. Related Data Home Medications Medication Instructions Recorded Confirmed cholecalciferol (vitamin D3) 50 50 mcg PO DAILY 03/16/21 06/15/22 mcg (2,000 unit) capsule (Vitamin D3) glucosamine sulfate 750 mg tablet 750 mg PO DAILY 03/16/21 06/15/22 estradiol 0.01% (0.1 mg/gram) 1 g vaginal 2XW 07/12/21 06/15/22 vaginal cream (Estrace) tamsulosin 0.4 mg capsule 0.4 mg PO HS 06/04/22 06/15/22 Allergies Allergy/AdvReac Type Severity Reaction Status Date / Time diphenhydramine Allergy Intermediate Hives Verified 06/25/22 15:18 [From Benadlesleel] Review of Systems Review of Systems: CONSTITUTIONAL: Denies fever, chills, or sweats. CARDIOVASCULAR: Denies chest pain. RESPIRATORY: Denies dyspnea. GASTROINTESTINAL: Reports left sided abdominal pain, nausea. Denies vomiting or diarrhea. GENITOURINARY: Reports dysuria and hematuria. MUSCULOSKELETAL: Reports left flank pain. All systems reviewed & are unremarkable except as noted in HPI and below PMFSH Past Medical History Medical History (Updated 06/25/22 @ 14:46 by Sejal Kwong PA-C) Adult BMI 31.0-31.9 kg/sq m Arthritis BMI 32.0-32.9,adult COVID-19 Encounter for screening colonoscopy Hyperlipidemia No acute medical problems Surgical History Surgical History (Updated 06/25/22 @ 12:19 by Sejal Kwong PA-C) History of appendectomy History of lithotripsy History of ureter stent Hx of breast reduction, elective Family History Family History Father Carcinoma of colon Bladder cancer Mother No problems noted. 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 Gender identity (if verbalized by the patient): Female Spiritual care concerns: No Exam Narrative: GENERAL: Well appearing, obese, non-toxic, in no acute distress. HEAD: Normocephalic, atraumatic. NECK: Supple. No adenopathy, no masses. RESPIRATORY: Airway patent, respirations nonlabored. Clear to auscultation bilaterally, no rales, rhonchi, wheezing. CARDIOVASCULAR: Regular rate and rhythm without murmurs, rubs, or gallops. Peripheral pulses 2+ and equal bilaterally. ABDOMINAL: Soft, mild tenderness to palpation in left lower/lateral abdomen. Nondistended, no hepatosplenomegaly. Normoactive BS. MUSCULOSKELETAL: Moves all extremities. Strength/ROM intact wi
[2022-06-25] MEDS: SODIUM CHLORIDE 0.9% IV 1,000 ML 999 ML IV CONT (11:17)
[2022-06-25] MEDS: ONDANSETRON INJ 4 MG/2 ML VIAL IV PUSH (11:18)
[2022-06-25] MEDS: MORPHINE SULFATE (*CRX) 4 MG/ML INJ IV PUSH ×2 (11:18→14:53)
[2022-06-25 11:32] LABS: Basophils Percent Auto 0.3 % (0.2-1.2); Eosinophils Absolute Auto 0.3 K/mm3 (0-0.3); Eosinophils Percent Auto 5.1 % (0-4.4); Hematocrit 39.8 % (37.0-47.0); Immature Granulocyte Absolute 0.02 K/mm3 (0.00-0.031); Immature Granulocyte Percent A 0.3 % (0-0.5); Lymphocytes Absolute Auto 1.62 K/mm3 (0.9-3.2); Lymphocytes Percent Auto 27.5 % (18.3-44.2); Mean Corpuscular HGB Conc 32.7 g/dl (32-36); Mean Corpuscular Hemoglobin 29.5 pg (26-34); Mean Corpuscular Volume 90.5 fl (80-100); Mean Platelet Volume 9.5 fl (7.4-10.4); Monocytes Absolute Auto 0.2 K/mm3 (0.1-0.6); Monocytes Percent Auto 3.1 % (2.6-8.5); Neutrophils Absolute Auto 3.8 K/mm3 (1.3-6.7); Neutrophils Percent Auto 63.7 % (45.5-73.1); Platelet Count Result 189 k/mm3 (150-375); Red Cell Distribution Width 13.1 % (11.5-14.5); White Blood Count 5.9 K/mm3 (4.5-10.0)
[2022-06-25 11:44] LABS: Alanine Aminotransferase 22 U/L (6-35); Albumin Level 4.4 g/dL (3.5-5.1); Alkaline Phosphatase 71 U/L (38-126); Anion Gap 11 mmol/L (8-16); Aspartate Amino Transferase 24 U/L (14-36); Bilirubin,Total 0.7 mg/dL (0.2-1.3); Blood Urea Nitrogen 15 mg/dL (7-17); Calcium 9.3 mg/dL (8.4-10.2); Carbon Dioxide 26 mmol/L (22-30); Chloride 106 mmol/L (98-107); Estimated CRCL calculation 59 ml/min; Estimated Glomerular Filt Rate 56; Glucose 158 mg/dL (65-110); Potassium 3.7 mmol/L (3.4-5.0); Sodium 143 mmol/L (137-145)
[2022-06-25 12:04] LABS: Add Urine Microscopic? YES; Appearance Urine Cloudy (Clear); Bacteria Urine Trace /hpf; Bilirubin Urine Negative (Negative); Blood Urine 3+ (Negative); Color Urine Yellow (Yellow); Glucose Urine UA Negative (Negative); Ketones Urine Negative (Negative); Leukocyte Esterase Ur 2+ LEU/UL (Negative); Mucus Urine Rare /lpf; Nitrate Urine Negative (Negative); Protein Urine 1+ mg/dL (Negative); RBC Urine 21-50 /hpf (0-2); Specific Grav Ur 1.017 (1.001-1.035); Squamous Epithelial Cell Urine Rare /hpf (Few); Urobilinogen Urine Negative mg/dL (<2.0)
[2022-06-25 12:52] VITALS: BP 139/88; PULSE 82; RESP 16; O2SAT 98
[2022-06-25] MEDS: CIPROFLOXACIN 500 MG TAB PO (14:53)
[2022-06-25 15:51] VITALS: BP 132/60; PULSE 80; RESP 14; O2SAT 98
== END 2022-06-25 15:52 | disposition home or self-care (01) ==
PROVIDERS: Physician Assistant; Emergency Provider Emergency Medicine; PCP Family Medicine
DX: N20.0 Calculus of kidney (principal); R82.90 Unspecified abnormal findings in urine; Z96.0 Presence of urogenital implants; Z87.891 Personal history of nicotine dependence; E78.5 Hyperlipidemia, unspecified
CPT/HCPCS: 36415; 74018; 80053; 81001; 85025; 87086; 96361; 96374; 96375; 99284; A9270; J2270; J2405; J7030

== ENCOUNTER 2022-06-26 00:49 | Day surgery (SDC) | payer MEDICARE, OTHER, SELFPAY ==
[2022-06-25 15:19] VITALS: BMI 33.4
--- NOTE | 2022-06-25 15:25 | PC.NURSE ---
Report to the Outpatient Waiting Room, entrance under the green pavilion located off [facility], at time _1000_ on date _06/26/22_. OR Time: _1200_. Time changes happen often and if your time is changed the preop area will call you the afternoon before. - You and your visitor will be asked to self-screen and do not enter if you have any COVID symptoms. - We encourage only one visitor and NO visitors under age 16 are allowed at this time. Your visitor will receive communication by the phone number that is given day of service. - The patient visitor is requested to social distance or may leave the building when not with patient due to restrictions. - A mask is required within the hospital. Patients may have clear liquids (water, carbonated beverages, clear teas, apple juice) until 3 hours prior to surgery (0900 AM) with a maximum of 20 ounces. - No food from midnight until time of surgery Take the following medications with a SIP of water the morning of surgery: _CIPRO, PAIN PILL IF NEEDED_ Medications to discontinue per physician __N/A__, Date to take last dose Please no make-up, nail arabic, hairspray, perfume, deodorant, or body powder the day of surgery. No jewelry (including any body piercings) or valuables the day of surgery, leave them at home. Please take a shower or bath the night before, or the morning of, surgery with an antibacterial soap. Wear comfortable, loose fitting clothing. - Jewelry must be removed prior to entering the operating room. Rings and piercings that are not removed may be cut off. - The hospital will not accept responsibility for valuables. - Please leave all valuables, including medications, at home the day of surgery. If you are going home after surgery, a licensed auto carrier driver must drive you home. - NO public transportation without another adult. - We recommend that an adult stay with you for 24 hours following discharge. - We also recommend that you do not drive, make important decision, drink alcoholic beverages, or take any drugs that were not prescribed by your health care provider for at least 24 hours after your discharge time. Follow any additional instructions given to you from your surgeon. If you or anyone in your household have experienced Covid symptoms in the past week, please notify your surgeon or the nurse liaison at the phone number below for possible testing. Telephone instructions given to __PT and asked if any additional questions and then verbalized understanding. Patient advised to call surgeon office or pre surgery nurse liaison [phone] if any additional questions.
[2022-06-26] VITALS (9 sets, daily range): BP systolic 100–124; BP diastolic 43–75; PULSE 61–85; RESP 14–18; TEMP 36.7–36.8; O2SAT 91–99
--- NOTE | ~2022-06-26 | XR_ITS ---
EXAMINATION: XR retrograde pyelo w/stent LT DATE: 06/26/2022 13:03 INDICATION: Left renal stone extraction and internal ureteral stent exchange. TECHNIQUE: 5 fluoroscopic images of the abdomen and pelvis were obtained during procedure performed tamiko Steiner. Radiologist was not present for the imaging or procedure. The amount of fluoroscopy t breanna used during this procedure was 0.5 minutes. COMPARISON: 06/25/22 FINDINGS: [employer] Child[employer] Associate images demonstrate a left internal ureteral stent in expected position. No definitive stones se en along the course of the catheter. Subsequent images demonstrate retrograde contrast injection into the left ureter and renal collecting system final images demonstrate a new internal ureteral stent w ith loops formed in the left renal pelvis and bladder. IMPRESSION: 1. Fluoroscopy utilized during left internal ureteral stent exchange with a new stent in expected pos ition. No stones identified but would correlate with procedure note for further detail. Reviewed, dictated and finalized at location B. IMPRESSION: 1. Fluoroscopy utilized during left internal ureteral stent exchange with a new stent in expected position. No stones identified but would correlate with proc edure note for further detail.
--- NOTE | 2022-06-26 10:12 | WPDHPUPDATE1 ---
History and Physical Update Update Date/Time: 06/26/22 10:12 History and Physical has been reviewed, including an updated exam of the patient. There are NO changes in the patient's condition. Risks, benefits, and alternatives have been discussed and questions answered. Patient agrees to proceed with procedure. Proceed with cysto, left retrograde, left ureteroscopy with stone extraction, possible laser, stent exchange
--- NOTE | 2022-06-26 10:18 | WPDANESEPPF ---
Anes - Initial Pre Proc Eval Procedure: Operation Date: 06/26/22 12:00 Proposed Procedures p Cystoscopy, Left Ureteroscopy, Left Stent Exchange, Possible Left Retrograde Pyelogram, Possible Left Stone Extraction, Possible Holmium Laser Procedure - Altaf Steiner MD Date/Time: 06/26/22 10:18 Surgeon: Altaf Steiner MD Pre Op Diagnosis: left ureteral stone Patient Data Age: 67 Gender: F Height: 1.7 m Weight: 96.9 kg Allergies Allergy/AdvReac Type Severity Reaction Status Date / Time diphenhydramine Allergy Intermediate Hives Verified 06/26/22 07:02 [From [facility]] Home Medications Medication Instructions Recorded Confirmed Type cholecalciferol (vitamin D3) 50 50 mcg PO DAILY 03/16/21 06/26/22 History mcg (2,000 unit) capsule (Vitamin D3) glucosamine sulfate 750 mg tablet 750 mg PO DAILY 03/16/21 06/26/22 History estradiol 0.01% (0.1 mg/gram) 1 g vaginal 2XW 07/12/21 06/26/22 History vaginal cream (Estrace) rosuvastatin 20 mg tablet (Crestor) 20 mg PO DAILY #30 tabs 05/06/22 06/26/22 Rx tamsulosin 0.4 mg capsule 0.4 mg PO HS 06/04/22 06/26/22 History ondansetron 4 mg disintegrating 4 mg PO Q8H PRN nausea and 06/15/22 06/26/22 Rx tablet vomiting #10 tabs ciprofloxacin HCl 500 mg tablet 500 mg PO Q12H 7 days #14 tabs 06/25/22 06/26/22 Rx hydrocodone 5 mg-acetaminophen 325 1 tablet PO Q6H PRN pain #20 tabs 06/25/22 06/26/22 Rx mg tablet Patient hx anesthesia problems: none Family hx anesthesia problems: none Results Review: All pre-operative results and documents have been reviewed as part of the pre-operative evaluation. [facility] Past Medical History Medical History Adult BMI 31.0-31.9 kg/sq m Arthritis BMI 32.0-32.9,adult COVID-19 Encounter for screening colonoscopy Hyperlipidemia No acute medical problems Surgical History Surgical History History of appendectomy History of lithotripsy History of ureter stent Hx of breast reduction, elective Family History Family History Father Carcinoma of colon Bladder cancer Mother No problems noted. 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 Gender identity (if verbalized by the patient): Female Spiritual care concerns: No Anes - Eval Final PreProcedure Day of Procedure 06/26/22 10:18 Patient weight: obese Heart: regular rate and rhythm Lungs: clear to auscultation Airway: Mallampati scale class II Neurological: alert and oriented Last oral intake: >/= 8 hours ASA classification: II Emergent: no Anesthetic plan: proceed Anesthesia type and monitoring: general LMA and standard monitoring Results Review: All pre-operative results and documents have been reviewed as part of the pre-operative evaluation. Informed Consent: The patient's anesthetic plan and its attendant risks and benefits were discussed with the patient/family/POA. Questions were solicited and answers provided to the satisfaction of the patient/family/POA.
[2022-06-26] MEDS: LACTATED RINGERS 1,000 ML 30 ML IV CONT (10:32)
[2022-06-26] MEDS: ceFAZolin 2 GM/D5W 50 ML 2 GM/50 ML BAG IVPB (12:22)
[2022-06-26] MEDS: KETOROLAC 30 MG/ML VIAL (*BKC) IV PUSH (12:56)
[2022-06-26] MEDS: LIDOCAINE HCL 2% GEL UROJET 10 ML PKG MUCOUS MEM (12:57)
--- NOTE | 2022-06-26 13:03 | W.PM.PROC2 ---
Procedure Note - Detailed Date of Procedure 06/26/22 Pre-op Diagnosis left ureteral stone Post-op Diagnosis Same Procedure Performed Cystoscopy, left retrograde pyelogram, left ureteroscopy with stone extraction, left ureteral stent exchange 4.8 [place] contour Surgeon Altaf Steiner MD Anesthesia General Description of Procedure Patient is taken the operative suite correctly identified. Once anesthesia was obtained she was placed in dorsal lithotomy position and prepped and draped usual sterile fashion. Twenty-two [place] scope was inserted the bladder. The prior stent was visualized and was encrusted. We were able to crush it using the grasper and then bring the stent out to the meatus. We could not pass a wire through the stent to the calcifications. We thus placed a rigid ureteral scope into the bladder and passed a wire alongside the stent. The prior stent was then removed. Rigid ureteral scope was then inserted into the ureter. There was 1 large fragment noted in the distal ureter which was retrieved using an escape basket. We then retrieved proximally 5-6 other stones from the proximal ureter. The mini flexible ureteral scope was then inserted up into the kidney. There was no large stones noted. There was some calcifications from the encrusted stent which we grasped retrieved. Pyelogram was then performed to confirm placement of the stent. 4.8 [place] contour stent was then placed with the proximal end coiled in the renal pelvis and the distal in the bladder. Bladder was drained. 2% viscous lidocaine was inserted into the urethra patient is taken recovery stable condition. She will follow up in a week's time for stent removal. Estimated Blood Loss 0 Drains Yes Packing No Pathology Yes Complications No immediate complications Condition Stable Disposition PACU
== END 2022-06-26 15:05 | disposition home or self-care (01) ==
PROVIDERS: PCP Family Medicine; Visit Provider Urology
PROC: (CPT 52352; principal; 2022-06-26 12:00)
DX: N20.1 Calculus of ureter (principal); E78.5 Hyperlipidemia, unspecified; Z87.891 Personal history of nicotine dependence; E66.9 Obesity, unspecified; Z68.33 Body mass index [BMI] 33.0-33.9, adult
CPT/HCPCS: 52332; 52352; 74420; 82365; 88300; A9270; C1769; C2617; J0690; J1100; J1170; J1885; J2250; J2405; J2704; J3010; J7120

== ENCOUNTER 2022-08-06 08:39 | Outpatient (CLI) | payer MEDICARE, OTHER, SELFPAY ==
--- NOTE | ~2022-08-06 | US_ITS ---
US retroperitoneal comp 08/06/2022 09:19 Procedure: Realtime transabdominal ultrasound of the kidneys and bladder. Indication: Left ureteral stone Comparison: No prior studies for comparison. Findings: Renal echotexture is normal bilaterally without hydronephrosis, contour deforming mass. The re is an echogenic focus in the left kidney measuring up to 9 mm, suspicious for nonobstructing nephr olithiasis. The right kidney measures 11.4 cm and left kidney measures 12.8 cm. Bladder within mani l limits. Impression: 1: Probable nonobstructing left nephrolithiasis. Reviewed, dictated and finalized at location B. EDWARDS Impression: 1: Probable nonobstructing left nephrolithiasis.
== END 2022-08-06 08:40 | disposition home or self-care (01) ==
PROVIDERS: PCP Family Medicine; Visit Provider Urology
DX: N20.1 Calculus of ureter (principal)
CPT/HCPCS: 76770

== ENCOUNTER 2022-08-21 10:06 | Outpatient (CLI) | payer MEDICARE, OTHER, SELFPAY ==
--- NOTE | ~2022-08-21 | XR_ITS ---
XR abdomen/kub 1V DATE: 08/21/2022 10:27 INDICATION: Left abdominal pain. Calcium kidney stone. TECHNIQUE: 2 supine AP views of the abdomen and pelvis COMPARISON: 05/01/2022 CT abdomen pelvis FINDINGS: Approximately 1.5 x 2 cm calcified gallstone. The psoas shadows are intact. No visceromegaly is noted noted. No radiographically detectable urinary tract calculi are noted overlying the kidneys, ureters or urinary bladder. No evidence of bowel obstruction. The lung bases are clear. Normal heart size. Multilevel prominent degenerative disc disease and mild dextro scoliosis of the lumbar spine. IMPRESSION: No radiographically detectable kidney stones; noncontrast CT abdomen pelvis would be more sensitive for detection of urinary tract calculi Cholelithiasis Reviewed, dictated and finalized at Location A. Reviewed, dictated and finalized at location B. SS CLERK IMPRESSION: No radiographically detectable kidney stones; noncontrast CT abdome n pelvis would be more sensitive for detection of urinary tract calculi Cholelithiasis
== END 2022-08-21 10:07 | disposition home or self-care (01) ==
PROVIDERS: PCP Family Medicine; Visit Provider Urology
DX: N20.0 Calculus of kidney (principal); K80.20 Calculus of gallbladder without cholecystitis without obstruction
CPT/HCPCS: 74018

== ENCOUNTER 2023-04-02 08:41 | Outpatient (CLI) | payer MEDICARE, OTHER, SELFPAY ==
--- NOTE | 2023-04-24 22:22 | WPDSLEEPSTUD ---
Sleep Study Date of Study: 04/02/23 Ordering Provider: Chayito Gill DO Interpreting Physician: Chayito Gill DO Sleep Study Type: Polysomnogram Height: 1.7 m Weight: 93.44 kg Body Mass Index: 32.2 Neck Circumference (inches): 17 [place]: 7 Reason for Sleep Study Loud snoring, multiple nighttime awakenings Sleep History The patient is a 67-year-old female with hyperlipidemia, arthritis and history of tobacco use that had a sleep study ordered for evaluation sleep apnea. The patient denies awakening from sleep short of breath. She denies awakening at night with heartburn, belching or cough. She constantly snores loudly enough others complain. She frequently has trouble sleeping when she has a cold. She denies waking up gasping for air throughout the night. She denies having breathing problems at night observed by herself or others. She occasionally sweats excessively at night. She denies having heart palpitations or irregular heartbeats during the night. She occasionally falls asleep during the day but never while driving. She denies sleep paralysis, cataplexy and hypnagogic / hypnopompic hallucinations. She denies having trouble at school or work due to sleepiness. She denies feeling afraid of going to sleep. She has nightmares. Occasionally remembers her dreams he constantly has thoughts racing through mind he denies feeling sad depressed. She occasionally has anxiety. She denies having muscular tension. He denies noticing parts of her body jerk. She denies kicking during the night. She denies having crawling and aching feelings in legs and rarely has leg pain during the night. She denies grinding her teeth during sleep and denies awakening with jaw pain. She is frequently bothered by pain during the day but never awakened by pain during the night. She occasionally wakes up feeling stiff morning. She denies waking up with sore or achy muscles. She occasionally wakes up with pain in the neck, spine or other joints. She goes to bed between 10-11 p.m. both weekdays and weekends. It takes her 20-60 minutes to asleep. She wakes 2-3 times throughout night to urinate and takes 10-15 minutes to fall back asleep. She wakes up at [place] on both weekdays and weekends. She typically gets 5-7 hours of sleep per night. She will stay in bed for 30-60 minutes after waking up in morning. He currently lives she does not consume any caffeinated beverages within 2 hours of bedtime. She does not engage in physical exercise before bedtime. She will read watch television before falling asleep. She will take naps in the afternoon or the evening and they are refreshing. She does not consume any caffeinated beverages throughout the day. She quit smoking cigarettes 25 years ago. She consumes 2 alcoholic beverages per week. She denies recreational drug use. [facility] Past Medical History Medical History Adult BMI 31.0-31.9 kg/sq m Arthritis BMI 32.0-32.9,adult COVID-19 Encounter for screening colonoscopy Hyperlipidemia No acute medical problems Surgical History Surgical History History of appendectomy History of lithotripsy History of ureter stent Hx of breast reduction, elective Family History Family History Father Carcinoma of colon Bladder cancer Mother No problems noted. Sibling COVID-19 Other Cancer Heart disease Social History Social History Smoking packs per day: 0.5 Smoking cigarettes per day: 10.0 Years smoked: 10 Smoking pack-years: 5.00 Smoking status: Former smoker Tobacco type: cigarettes Second hand tobacco smoke exposure: No Smoking end date: 06/04/97 Alcohol intake: current Drinks per week: 2 Alcohol use de
[2023-04-24 22:27] VITALS: BMI 32.2
== END 2023-04-03 07:01 | disposition home or self-care (01) ==
LOC: ANHCSM 08:42
PROVIDERS: PCP Family Medicine; Visit Provider Family Medicine
DX: G47.33 Obstructive sleep apnea (adult) (pediatric) (principal); R06.83 Snoring
CPT/HCPCS: 95810

== ENCOUNTER 2023-05-21 08:37 | Outpatient (CLI) | payer MEDICARE, OTHER, SELFPAY ==
--- NOTE | 2023-06-07 17:58 | WPDSLEEPSTUD ---
Sleep Study Date of Study: 05/21/23 Ordering Provider: Chayito Gill DO Interpreting Physician: Mari Mock MD Sleep Study Type: CPAP Titration Height: 1.7 m Weight: 113.398 kg Body Mass Index: 39.1 Neck Circumference (inches): 15 [place]: 7 Reason for Sleep Study *04/02/2023 basic polysomnogram showed AHI of 6.5 with desaturation down to 77%, mild sleep apnea with 106.5 minutes, a 24% of total monitoring time with an oxygen saturation below 88%. Patient presents for a CPAP titraiton. Sleep History Kari Whitlock is a 68-year-old female with hyperlipidemia, arthritis and history of tobacco use who had a basic sleep study showing mild obstructive sleep apnea with 106 minutes spent below 88%. She returns for a CPAP titration. She denies waking from sleep short of breath.? She denies awakening at night with heartburn, belching or coughing.? She constantly snores loudly enough that others complain.? She frequently has trouble sleeping when she has a cold.? She denies waking up gasping for air at night. She occasionally sweats excessively at night.? She denies having heart palpitations or irregular heartbeats during the night.? She occasionally falls asleep during the day but never while driving.? She denies having loss of muscle tone on falling asleep or upon waking. She does not have loss of muscle tone with strong emotion. She does not have vivid dreamlike scenes on waking or falling asleep. She denies having daytime difficulties at work due to excessive daytime sleepiness. She denies feeling afraid of going to sleep.? She has nightmares.? On occasion, she remembers her dreams. She has constant racing thoughts. She does not have feelings of sadness or depression. She occasionally has anxiety.? She denies having muscular tension.? He denies noticing parts of her body jerk.? She denies kicking during the night.? She denies having crawling and aching feelings in legs and rarely has leg pain during the night.? She denies grinding her teeth during sleep, and waking with jaw pain.? She is frequently bothered by pain during the day, never awakened by pain during the night.? She occasionally wakes up feeling stiff morning.? She denies waking up with sore or achy muscles.? She occasionally wakes up with pain in the neck, spine or other joints.? Normal bedtime is between 10:00 p.m.-11:00 p.m., taking 20-60 minutes to asleep.? She wakes 2-3 times throughout night to urinate, returns to sleep within 10-15 minutes. She wakes up at sunrise on both weekdays and weekends.? She typically gets 5-7 hours of sleep per night.? She takes naps in the afternoon or the evening. A short nap lasting 10-15 minutes may be refreshing. Habits: Tobacco: Quit 25 years ago. Caffeine: none Alcohol: 2 alcoholic beverages per week.? Recreational substances: none. [facility] Past Medical History Medical History (Updated 06/07/23 @ 18:07 by Mari Mock MD) Adult BMI 31.0-31.9 kg/sq m Arthritis BMI 32.0-32.9,adult COVID-19 Encounter for screening colonoscopy Hyperlipidemia No acute medical problems GERALDINE (obstructive sleep apnea) Surgical History Surgical History History of appendectomy History of lithotripsy History of ureter stent Hx of breast reduction, elective Family History Family History Father Carcinoma of colon Bladder cancer Mother No problems noted. Sibling COVID-19 Other Cancer Heart disease Social History Social History Smoking packs per day: 0.5 Smoking cigarettes per day: 10.0 Years smoked: 10 Smoking pack-years: 5.00 Smoking status: Former smoker Tobacco type: cigarettes Second hand tobacco smoke exposure: No Smoking end date: 06/04/97 Alcohol intake: current Drinks per week: 2 Alcohol use details: occassionally Felipe
[2023-06-09 18:08] VITALS: BMI 39.1
== END 2023-05-22 07:04 | disposition home or self-care (01) ==
LOC: ANHCSM 08:38
PROVIDERS: PCP Family Medicine; Visit Provider Family Medicine
DX: G47.33 Obstructive sleep apnea (adult) (pediatric) (principal); Z68.39 Body mass index [BMI] 39.0-39.9, adult
CPT/HCPCS: 95811

== ENCOUNTER 2023-08-29 12:02 | Outpatient (CLI) | payer MEDICARE, OTHER, SELFPAY ==
--- NOTE | ~2023-08-29 | XR_ITS ---
Clinical Indication: Nocturnal hypoxemia PA and lateral views of the chest: Comparison: 09/15/2015 Findings: The lungs are clear, without evidence of focal consolidation or pleural effusion. Cardiome diastinal silhouette is within normal limits. Bones and soft tissues are unremarkable. Impression: Normal chest. Reviewed, dictated and finalized at location . F[employer]ING M[employer]ER Impression: Normal chest.
== END 2023-08-29 12:03 ==
LOC: MICIMG 12:03
PROVIDERS: PCP Family Medicine; Visit Provider Family Medicine
DX: R09.02 Hypoxemia (principal)
CPT/HCPCS: 71046

== ENCOUNTER 2023-09-18 08:02 | Outpatient (CLI) | payer MEDICARE, OTHER, SELFPAY ==
--- NOTE | 2023-09-18 12:08 | WPDPFTINT ---
PFT Procedure Performed PFT Procedure Performed Spirometry with Pre/Post Bronchodilator Plethysmography (Lung Vol) Diffusing Cap (DLCO) Flow Vol Loop PFT Interpretation This is a pulmonary function test with pre and post-bronchodilator spirometry, plethysmography and diffusing capacity. The test was performed and results interpreted in accordance with the 2019 and 2005 ATS/ERS Task Force guidelines respectively using the Global Lung Function Initiative-2012 reference equations. Patient demonstrated good effort and cooperation. Reproducibility criteria were met. The quality of the pre bronchodilator spirometry maneuver was Grade B and post bronchodilator spirometry maneuver was Grade B. Findings: Spirometry: The contour the inspiratory and expiratory flow tracing are normal. The pre bronchodilator FVC is 2.91 L, 88% predicted. The pre bronchodilator FEV1 is 2.30 L, 90% predicted. The pre bronchodilator FEV1: FVC ratio 79%. The post bronchodilator FVC is 3.39 L, representing a 17% increase. The post bronchodilator FEV1 is 2.79 L, representing a 21% increase. The post bronchodilator FEV1: FVC ratio was 82%. Plethysmography: The total lung capacity is 5.51 L, 100% predicted. The functional residual capacity is 2.09 L, 67% predicted. The residual volume is 2.06 L, 91% predicted. Diffusing capacity: The diffusing capacity unadjusted for hemoglobin and carboxyhemoglobin is 19.1, 86% predicted. The diffusing capacity adjusted for alveolar volume is 4.31, 102% predicted. Impression: The spirometry is normal without evidence of an obstructive abnormality. There is significant improvement after inhaling a single dose of albuterol. The total lung capacity and residual volume are normal with a decreased functional residual capacity. This is an abnormal but nonspecific lung volume pattern. The diffusing capacity is normal. There are no prior studies for comparison
== END 2023-09-18 08:03 | disposition home or self-care (01) ==
LOC: ANHPFT 08:03
PROVIDERS: PCP Family Medicine; Visit Provider Family Medicine
DX: R06.00 Dyspnea, unspecified (principal)
CPT/HCPCS: 94060; 94726; 94729